=== PATIENT | female | born 1955 | race Hispanic/Latino ===

== ENCOUNTER 2018-01-27 06:43 | Emergency (ER) | payer OTHER, MEDICARE ==
[2018-01-27 06:43] VITALS: BMI 23.3
[2018-01-27 06:55] VITALS: RESP 20; O2SAT 98
[2018-01-27 07:41] LABS: SQUAMOUS EPITHIAL < 1 /hpf (0-5); URINE BACTERIA OCC (<OCC); URINE BILIRUBIN NEGATIVE (NEGATIVE); URINE BLOOD 2+ (NEGATIVE); URINE CLARITY Hazy (Clear); URINE COLOR Yellow (YELLOW); URINE GLUCOSE (UA) NORMAL (Normal); URINE LEUKOCYTE ESTERASE 3+ Leu/uL (Negative); URINE PROTEIN NEGATIVE (NEGATIVE); URINE UROBILINOGEN NORMAL mg/dL (0.2-1.0)
--- NOTE | 2018-01-27 07:41 | C.PDOC ---
History Of Present Illness 62 y/o female presents to ED with c/o "bladder pain" and dysuria since last night. Patient has history of UTI and states current symptoms similar to prior UTI. Patient tried OTC medication with minimal relief and currently denies fever, chills, back pain, hematuria, vomiting, diarrhea, vaginal bleeding or vaginal discharge. Time Seen by Provider: 01/27/18 07:20 Chief Complaint (Nursing): Female Genitourinary History Per: Patient History/Exam Limitations: no limitations Onset/Duration Of Symptoms: Days Current Symptoms Are (Timing): Still Present Past Medical History Reviewed: Historical Data, Nursing Documentation, Vital Signs Vital Signs: Last Vital Signs Temp 97.6 F 01/27/18 06:49 Pulse 60 01/27/18 06:49 Resp 20 01/27/18 06:49 BP 145/87 01/27/18 06:49 Pulse Ox 98 01/27/18 06:49 - Medical History PMH: Anxiety, Depression, HTN, Hypercholesterolemia Surgical History: No Surg Hx - [facility] Procedures BURSECTOMY (07/15/00) FUSION/REFUS OF 2-3 VERTEBRAE (03/16/13) INSERTION OF INTERBODY SPINAL FUSION DEVICE (03/16/13) LUMBAR & LUMBOSACRAL FUSION OF ANTERIOR COL/TECHNIQUE (03/16/13) PSYCHIAT DRUG THERAP NEC (01/18/14) REMOV INT FIX-RADIUS/ULN (07/15/00) Family History: States: No Known Family Hx - Social History Hx Tobacco Use: No Hx Alcohol Use: No Hx Substance Use: No - Immunization History Hx Tetanus Toxoid Vaccination: No Hx Influenza Vaccination: No Hx Pneumococcal Vaccination: No Review Of Systems Constitutional: Negative for: Fever, Chills Gastrointestinal: Positive for: Abdominal Pain. Negative for: Nausea, Vomiting, Diarrhea Genitourinary: Positive for: Dysuria. Negative for: Frequency, Incontinence, Vaginal Discharge, Vaginal Bleeding Skin: Negative for: Rash Physical Exam - Physical Exam Appears: Non-toxic, No Acute Distress Skin: Warm, Dry, No Rash Head: Atraumatic, Normacephalic Eye(s): bilateral: Normal Inspection Oral Mucosa: Moist Neck: Supple Cardiovascular: Rhythm Regular Respiratory: Normal Breath Sounds, No Rales, No Rhonchi, No Wheezing Gastrointestinal/Abdominal: Soft, No Tenderness, No Guarding, No Rebound Back: No CVA Tenderness Extremity: Bilateral: Atraumatic Neurological/Psych: Oriented x3, Normal Speech, Normal Cognition ED Course And Treatment O2 Sat by Pulse Oximetry: 98 (RA) Pulse Ox Interpretation: Normal Medical Decision Making Medical Decision Making: Impression: dysuria Plan: * UA ordered * Urine culture sent Progress: UA shows UTI. Ordered Bactrim DS first dose in ED. Patient made aware of results and to be discharged with Rx. Disposition Counseled Patient/Family Regarding: Diagnosis, Need For Followup, Rx Given - Disposition Referrals: Jm Gallagher MD [Staff Provider] - Disposition: HOME/ ROUTINE Disposition Time: 07:52 Condition: GOOD Additional Instructions: Take antibiotic twice daily and be sure to finish taking all of antibiotic. Drink plenty of fluids. If urine culture was performed, call back for results in 2-3 days for results to confirm antibiotic is treating UTI well. Prescriptions: Sulfamethoxazole/Trimethoprim [Bactrim DS 800 mg-160 mg] 1 tab PO BID #10 tab Instructions: Urinary Tract Infection, Adult (DC) Forms: [employer] ([place]) - POA Present On Arrival: None - Clinical Impression Clinical Impression: UTI (urinary tract infection) - PA / TREASURY ANALYST / Resident Statement MD/DO has reviewed & agrees with the documentation as recorded. - Scribe Statement The provider has reviewed the documentation as recorded by the Arslanibwalter Toscano All medical record entries made by the Arslanibwalter were at my direction and personally dictated by me. I have reviewed the chart and agree that the record accurately reflects my personal performance of the history, physical exam, medical decision making, and the department course for this patient. I have also personally directed, reviewed, and agree with the discharge instructions and disposition.
[2018-01-27] MEDS ORDERED: Tmp-Smz 800 mg-160 mg DS Tab PO STA (07:49)
[2018-01-27] MEDS ORDERED: Tmp-Smz 800 mg-160 mg DS Tab ONE (07:58)
[2018-01-27 09:04] VITALS: BP 130/74; PULSE 84; TEMP 98.1
== END 2018-01-27 08:09 | disposition home or self-care (01) ==
LOC: C.ER 06:43
DX: N39.0 Urinary tract infection, site not specified (principal)